=== PATIENT | female | born 1995 | race Caucasian/White ===

== ENCOUNTER 2025-07-26 01:30 | Emergency (ER) | payer SELFPAY ==
[2025-07-26] MEDS ORDERED: TETANUS/DIPHTHERIA TOX ADULT 0.5 ML SYR ONE (01:50)
== END 2025-07-26 02:00 | disposition home or self-care (01) ==
LOC: ER 01:30
DX: S61.052A Open bite of left thumb without damage to nail, initial encounter (principal); W54.0XXA Bitten by dog, initial encounter; Y92.89 Other specified places as the place of occurrence of the external cause; Z23 Encounter for immunization
CPT/HCPCS: 90714; 99283